=== PATIENT | male | born 1980 | race Caucasian/White ===

== ENCOUNTER 2021-03-10 16:10 | Emergency (ER) | payer OTHER, SELFPAY ==
[2021-03-10 16:18] VITALS: BP 113/74; PULSE 108; RESP 16; TEMP 36.8; O2SAT 100
[2021-03-10 16:22] VITALS: BP 113/74; PULSE 108; RESP 16; TEMP 36.8; O2SAT 100
--- NOTE | 2021-03-10 16:51 | ED.SKABFB ---
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 Patient states that he went to [facility] ER and had stitches placed to wound on left knee 10 days ago. Patient denies any redness, acute pain, or any drainage from sutured region, laceration well approximated. Patient denies any fevers, chills or sweats, states that he received tetanus booster when he was in the emergency room. MD complaint: laceration Tetanus up to date: yes Location: LLE (knee) Related Data Home Medications Medication Instructions Recorded Confirmed No Home Medications 03/10/21 03/10/21 Allergies Allergy/AdvReac Type Severity Reaction Status Date / Time No Known Allergies Allergy Unknown Unverified 03/10/21 16:44 Review of Systems Review of Systems: Narrative: CONSTITUTIONAL: Denies fever, chills, or sweats. EYES: Denies visual changes, redness, or discharge. ENT: Denies rhinorrhea, congestion, sore throat, or otalgia. CARDIOVASCULAR: Denies chest pain, palpitations, or edema. RESPIRATORY: Denies cough or dyspnea. GASTROINTESTINAL: Denies abdominal pain, nausea, vomiting, or diarrhea. GENITOURINARY: Denies dysuria or hematuria. SKIN: Denies rash or itching.healed laceration to left knee which he received sutures in 10 days ago. MUSCULOSKELETAL: Denies back pain, joint pain, or myalgia. NEUROLOGIC: Denies headache, numbness, or weakness. PSYCHIATRIC: Positive history of anxiety or depression. All systems reviewed & are unremarkable except as noted in HPI and below PMFSH Past Medical History Medical History (Updated 03/18/21 @ 13:34 by Karla Christy NP) Asthma Depression Hepatitis C Surgical History Surgical History (Updated 03/18/21 @ 13:36 by Karla Christy NP) History of hand surgery reconstruction of left index finger Social History Social History (Updated 03/18/21 @ 13:36 by Karla Christy NP) Smoking status: Current every day smoker Tobacco type: cigarettes Alcohol intake: current Alcohol use details: social Substance use: unknown Living arrangements: with family Gender identity (if verbalized by the patient): Male Comments At time of signature, agree with nursing past medical, surgical, social and family history. There is no relevant family history pertinent to the presenting complaint Exam Narrative: Exam Narrative: GENERAL: Well-appearing, well-nourished, and in no acute distress. HEAD: Normocephalic, atraumatic. EYES: PERRLA and EOMI. ENT: Nares clear, no rhinorrhea or epistaxis. Mucous membranes moist. NECK: Supple.no lymphadenopathy CHEST: Clear to auscultation. No respiratory distress.SAO2 100% on room air. HEART: Regular rate and rhythm. No murmur heard. Normal peripheral pulses. ABDOMEN: Soft, nontender, nondistended, normal active bowel sounds. EXTREMITIES: Normal range of motion. No edema. SKIN: Warm, dry, no rash. healed laceration to left knee for which sutures removed at this visit, well approximated with no redness NEURO: No focal deficits. Alert and oriented x3. Course Vital Signs Vital signs: Vital Signs Temperature 36.8 C 03/10/21 16:18 Pulse Rate 108 H 03/10/21 16:18 Respiratory Rate 16 03/10/21 16:18 Blood Pressure 113/74 03/10/21 16:18 Pulse Oximetry 100 03/10/21 16:18 Temperature 36.8 C 03/10/21 16:22 Pulse Rate 108 H 03/10/21 16:22 Respiratory Rate 16 03/10/21 16:22 Blood Pressure 113/74 03/10/21 16:22 Pulse Oximetry 100 03/10/21 16:22 Procedures Other Procedure Procedure 1: Other Procedure: 1640 Patient here today for suture removal from left knee lacerat
== END 2021-03-10 17:14 | disposition home or self-care (01) ==
PROVIDERS: Emergency Provider Registered Nurse; PCP Internal Medicine
DX: Z48.02 Encounter for removal of sutures (principal); Z86.19 Personal history of other infectious and parasitic diseases
CPT/HCPCS: 99211; G0463